=== PATIENT | female | born 1940 | race Caucasian/White ===

== ENCOUNTER 2017-09-22 16:12 | Emergency (ER) | payer OTHER ==
[~2017-09-22] VITALS: Ht 157.5 cm; Wt 68.0 kg
== END 2017-09-22 19:42 | disposition home or self-care (01) ==
LOC: ER 16:12
DX: S50.01XA Contusion of right elbow, initial encounter (principal); S80.01XA Contusion of right knee, initial encounter; S70.01XA Contusion of right hip, initial encounter; S40.011A Contusion of right shoulder, initial encounter; W18.39XA Other fall on same level, initial encounter; Y93.89 Activity, other specified; Y92.512 Supermarket, store or market as the place of occurrence of the external cause; Y99.8 Other external cause status

== ENCOUNTER 2025-08-03 12:06 | Emergency (ER) | payer OTHER ==
[~2025-08-03] VITALS: Ht 157.5 cm; Wt 65.3 kg
[~2025-08-03 12:06] MED LIST: CRESTOR20 MG PO
[2025-08-03] MEDS ORDERED: METHYLPREDNISOLONE SOD SUCC 125 MG VIAL IM STA (13:51)
[2025-08-03] MEDS ORDERED: LEVALBUTEROL HCL 0.63 MG/3 ML SOLUTION IH SCH (14:00)
[2025-08-03] MEDS ORDERED: LEVALBUTEROL HCL 0.63 MG/3 ML SOLUTION IH ONE (14:12)
[2025-08-03] MEDS ORDERED: METHYLPREDNISOLONE SOD SUCC 40 MG VIAL ONE (15:44)
[2025-08-03 16:48] LABS: BASO % 0.3 % (0.1-1.2); EOS # 1.82 (0.04-0.54); LYMPH # 3.11 (1.18-3.74); LYMPH % 30.5 % (19.3-53.1); MEAN PLATELET VOLUME 11.80 fl (9.4-12.4); MONO # 0.52 (0.24-0.82); MONO % 5.1 % (4.7-12.5); NEUT # 4.70 (1.56-6.13); NEUT % 46.0 % (34.0-71.1); RED CELL DISTRIBUTION WIDTH 13.5 % (11.6-14.4)
[2025-08-03 16:59] LABS: EOS % 17.8 % (0.7-7.0)
[2025-08-03 17:11] LABS: INR 1.02
[2025-08-03 17:17] LABS: ERYTHROCYTE SEDIMENTATION RATE 43 mm/hr (0-30)
[2025-08-03 17:24] LABS: COVID-19 AG NEGATIVE (NEGATIVE)
[2025-08-03 17:41] LABS: ALT/SGPT 13.0 U/L (12-78); AST/SGOT 14.0 U/L (15-37); BILIRUBIN TOTAL 0.32 mg/dL (0.3-1.2); BUN CREA RATIO 18.0 (7.0-25.0); CREATININE SERUM 1.92 mg/dL (0.55-1.02); GFR 24.76; GLOBULINA 3.8 G/DL (2.4-3.5); GLUCOSE FASTING 127.0 mg/dL (65-100); OSMOLALITY SERUM 292.0 MOSM/KG (275-295)
[2025-08-03 18:04] LABS: URINE APPEARANCE Clear; URINE BILIRRUBIN Negative (NEGATIVE); URINE BLOOD Negative; URINE COLOR Yellow; URINE GLUCOSE Negative (NEGATIVE); URINE KETONE Negative (NEGATIVE); URINE LEUKOCYTE Negative; URINE NITRATE Negative; URINE UROBILINOGEN 1.0 E.U./dl
[2025-08-03 18:13] LABS: URINE BACTERIA 33.5 uL (0.0-1933); URINE EPITHELIAL CELLS 16.7 uL (0.0-38.8); URINE RBC 2.4 uL (0.0-20.8); URINE WBC 17.8 uL (0.0-23.2)
[2025-08-03 18:17] LABS: URINE CAST 0.14 uL (0.0-1.40); URINE PROTEIN 100 (NEGATIVE)
[2025-08-03] MEDS ORDERED: MEDROLPACK PO (18:39)
[2025-08-03] MEDS ORDERED: ZITHROMAX500 MG PO (18:39)
[2025-08-03] MEDS ORDERED: BUDESONIDE0.5 MG/2 M IH (18:39)
[2025-08-03] MEDS ORDERED: ALBUTEROL2.5 MG/3 M IH (18:39)
== END 2025-08-03 19:17 | disposition home or self-care (01) ==
LOC: ER 12:07
PROVIDERS: Physician Assistant Medical
DX: J06.9 Acute upper respiratory infection, unspecified (principal); D72.829 Elevated white blood cell count, unspecified; J00 Acute nasopharyngitis [common cold]; R50.9 Fever, unspecified; Z20.822 Contact with and (suspected) exposure to COVID-19
CPT/HCPCS: 36415; 71046; 82803; 93005; 94640; 96372; 99283; J3490